=== PATIENT | female | born 1960 | race Caucasian/White ===

== ENCOUNTER → 2016-10-26 | Outpatient (CLI) | payer BC, OTHER ==
[~2016-10-26] VITALS: Ht 162.6 cm; Wt 68.0 kg
[~2016-10-26] MED LIST: ALDACTONE100 MG PO; ASPIR 8181 MG PO; BIOIDENTICAL HORMONE; BIOTIN2500 MCG PO; CHROMIUM400 MCG PO; CO Q-10100 MG PO; DIETHYLPROPION25 MG PO; LEVOTHYROXIN0.125 M1 PO; LEVOTHYROXIN0.175 MG PO; POTASSIUM CITR10 ME1 PO; PROBIOTIC1 EAC1 PO; TOPAMAX50 MG PO; VIT D PO; VITAMIN B-12500 MCG PO
[2016-10-26 08:10] VITALS: BP 132/79
[2016-10-26 09:00] VITALS: BP 124/79
[2016-10-26 09:20] VITALS: BP 123/92
[2016-10-26 09:25] VITALS: BP 130/87
[2016-10-26 09:30] VITALS: BP 130/66; BP 138/69
== END | disposition home or self-care (01) ==
LOC: CAT 07:32
DX: M71.30 Other bursal cyst, unspecified site (principal)